=== PATIENT | male | born 1940 | race Caucasian/White ===

== ENCOUNTER 2018-02-01 14:40 | Emergency (ER) | payer OTHER ==
[~2018-02-01] VITALS: Ht 170.2 cm; Wt 77.1 kg
[2018-02-01] MEDS ORDERED: CAPOTEN12.5 MG (14:47)
[2018-02-01] MEDS ORDERED: CATAPRES0.2 MG (14:50)
[2018-02-01] MEDS ORDERED: HYDRALAZINE HCL50 MG PO (14:51)
[2018-02-01] MEDS ORDERED: ASPIR 8181 MG (14:51)
[2018-02-01] MEDS ORDERED: LIPITOR20 MG (14:51)
== END 2018-02-01 19:34 | disposition home or self-care (01) ==
LOC: ER 14:40 → EMR PED 14:40 → ER 15:38
DX: L02.415 Cutaneous abscess of right lower limb (principal)